=== PATIENT | female | born 1970 | race Caucasian/White ===

== ENCOUNTER 2021-09-01 08:54 | Outpatient (CLI) | payer BC | END 2021-09-01 08:55 | disposition home or self-care (01) | LOC: BICCT 08:54 | PROVIDERS: ATTEND Urology | DX: R31.29 Other microscopic hematuria (principal); K65.1 Peritoneal abscess; N20.0 Calculus of kidney; K76.89 Other specified diseases of liver | CPT/HCPCS: 74178 ==